=== PATIENT | female | born 1960 | race Caucasian/White ===

== ENCOUNTER → 2023-08-13 | Outpatient (CLI) | payer BC ==
[~2023-08-13] MED LIST: AMOXICILLIN 8751 TAB PO; ASPIRIN 81M81 MG/TA2 PO; COUMADIN 5MG5 MG/TAB PO; K-TAB20 PO; LANOXIN 0.120.125 MG PO; LASIX 20MG TABL20 MG PO; LASIX 40MG TABL40 MG PO; LOPRESSOR 225 MG/TAB PO; TAMBOCOR 1100 MG/TAB PO
== END ==
LOC: COL.RAD 09:15
DX: J98.6 Disorders of diaphragm (principal)